=== PATIENT | female | born 1955 | race African-American/Black ===

== ENCOUNTER 2021-12-18 12:21 | Emergency (ER) | payer OTHER ==
[~2021-12-18 12:21] MED LIST: KEFLEX250 MG PO
[2021-12-18] MEDS ORDERED: MELOXICAM7.5 MG PO (14:38)
== END 2021-12-18 14:45 | disposition home or self-care (01) ==
LOC: FER 12:21
DX: M71.58 Other bursitis, not elsewhere classified, other site (principal)
CPT/HCPCS: 93971